=== PATIENT | male | born 1960 | race Caucasian/White ===

== ENCOUNTER 2016-08-27 09:51 | Emergency (ER) | payer OTHER | END 2016-08-27 11:45 | disposition home or self-care (01) | LOC: ER1 09:51 | DX: Z76.0 Encounter for issue of repeat prescription (principal); R21 Rash and other nonspecific skin eruption; F17.210 Nicotine dependence, cigarettes, uncomplicated; Z79.899 Other long term (current) drug therapy | CPT/HCPCS: 96372; 99282; J1100 ==

== ENCOUNTER 2016-11-05 10:39 | Emergency (ER) | payer OTHER | END 2016-11-05 11:58 | disposition home or self-care (01) | LOC: ER1 10:39 | DX: L98.9 Disorder of the skin and subcutaneous tissue, unspecified (principal); L29.9 Pruritus, unspecified; F17.210 Nicotine dependence, cigarettes, uncomplicated | CPT/HCPCS: 99282 ==